=== PATIENT | female | born 1955 | race Caucasian/White ===

== ENCOUNTER → 2018-05-02 09:42 | Outpatient (CLI) | payer BC, SELFPAY ==
--- NOTE | 2018-05-02 09:45 | MM_ITS ---
MM Dig screening mamm BI w/CAD ORDERING PHYSICIAN : Linnette Blackman PATIENT AGE: 62 years GENDER: Female COMPARISON: January . 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 Bilateral breast reduction. No hormones. No new complaints Family history.: Maternal grandmother with breast cancer TECHNIQUE: Standard CC and MLO images were obtained. R2 CAD reviewed. Nipple profile MLO view included FINDINGS: Lower density breast with generalized fatty replacement. Minimal residual fibroglandular elements most evident at the lateral right left breast No dominant mass nor suspicious catheter either breast. CAD computer review highlights no areas of concern either RIGHT BREAST:. Stable right breast. Follow-up in one year LEFT BREAST:Stable left breast. Follow-up in one year Mild architectural changes most evident on the left breast from previous breast reduction.--appears stable -------- IMPRESSION: Stable bilateral mammogram significant new findings. Follow-up in one year. BI-RADS Category: 1 Negative RECOMMENDED FOLLOW-UP: 1YR 1 YEAR FOLLOW-UP (A letter has been sent to the patient regarding results of the study.)
== END ==
PROVIDERS: PCP Nurse Practitioner Family; Visit Provider Nurse Practitioner Family
DX: Z12.31 Encounter for screening mammogram for malignant neoplasm of breast (principal)
CPT/HCPCS: 77067

== ENCOUNTER → 2021-06-30 08:20 | Outpatient (CLI) | payer BC, SELFPAY ==
--- NOTE | 2021-06-30 08:24 | MM_ITS ---
PROCEDURE INFORMATION: Exam: MG Bilateral Screening 3D Mammography Exam date and time: 06/30/2021 8:24 AM Age: 65 years old Clinical indication: Encounter for screening mammogram for malignant neoplasm of breast TECHNIQUE: Imaging protocol: Bilateral Screening tomosynthesis and 2D mammography including computer-aided detection (CAD) when performed. COMPARISON: 1. MG SCBI MM Dig screening mamm BI w/CAD 05/02/2018 9:54 AM 2. MG DMSB DIG MAMM-SCREEN EDWINA W/CAD 01/25/2017 4:47 PM FINDINGS: MAMMOGRAPHY: Breast composition: The breasts are almost entirely fatty. Mass: None. Architectural distortion: None. Calcifications: No suspicious calcifications. Asymmetric density: None. Skin thickening: None. Axillary adenopathy: None. IMPRESSION: No mammographic evidence of malignancy. Annual screening is recommended unless otherwise clinically indicated. ASSESSMENT: BI-RADS Category 1: Negative
--- NOTE | 2021-06-30 08:28 | XR_ITS ---
FINAL REPORT CLINICAL HISTORY: LT KNEE PAIN x 1 year FINDINGS: Three views of the left knee reveal no evidence of fracture or dislocation. The bony alignment is normal. There are mild degenerative changes. There is no evidence of joint effusion. No localized soft tissue abnormality is seen. IMPRESSION: Mild degenerative change. Reviewed, Interpreted and Dictated by Matthew Lindsay III, MD Transcribed by Alvin Rodriges Authenticated by Matthew Lindsay III, MD on 06/30/2021 09:58:48 AM [facility]
== END ==
PROVIDERS: PCP Nurse Practitioner Family; Visit Provider Nurse Practitioner Family
DX: Z12.31 Encounter for screening mammogram for malignant neoplasm of breast (principal); M25.562 Pain in left knee
CPT/HCPCS: 73562; 77063; 77067

== ENCOUNTER → 2021-08-26 16:03 | Outpatient (CLI) | payer BC, SELFPAY | PROVIDERS: PCP Nurse Practitioner Family; Visit Provider Internal Medicine Adolescent Medicine | DX: G47.33 Obstructive sleep apnea (adult) (pediatric) (principal); R51.9 Headache, unspecified; R06.83 Snoring | CPT/HCPCS: G0399 ==

== ENCOUNTER → 2021-11-22 12:57 | Outpatient (CLI) | payer BC, SELFPAY ==
--- NOTE | 2021-11-22 13:03 | XR_ITS ---
FINAL REPORT CLINICAL HISTORY: RT KNEE PAIN FINDINGS: RIGHT KNEE Three views of the right knee reveal no evidence of fracture or dislocation. The bony alignment is normal. There is mild degenerative change. There is no evidence of joint effusion. There is a moderate joint effusion. IMPRESSION: Mild degenerative change with a moderate joint effusion. No acute bony abnormality. Reviewed, Interpreted and Dictated by Matthew Lindsay III, MD Transcribed by Hansa Salinas Authenticated and [facility]
== END ==
PROVIDERS: PCP Internal Medicine Adolescent Medicine; Visit Provider Internal Medicine Adolescent Medicine
DX: M25.561 Pain in right knee (principal)
CPT/HCPCS: 73562

== ENCOUNTER 2021-12-31 13:45 | Emergency (ER) | payer BC, SELFPAY ==
[2021-12-31 13:46] VITALS: BP 131/89; PULSE 76; RESP 19; TEMP 36.9; O2SAT 97; BMI 35.0
[2021-12-31 14:10] LABS: Color,Urine Red (Yellow)
[2021-12-31 14:11] LABS: Apearance,Urine Cloudy (Clear); Bilirubin,Urine 3+ (Negative); Blood, Urine 3+ (Negative); Glucose,Urine (UA) 100 (Negative); Ketones,Urine 2+ (Negative); PH,Urine 8.5 (5.0-8.5); Protein,Urine 3+ (Negative); UTC Leukocyte Esterase,Urine 3+ (Negative); UTC Nitrate,Urine Positive (Negative); Urobilinogen,Urine 4 EU/dl (0.2)
--- NOTE | 2021-12-31 14:55 | HMH.EDUTC ---
[facility] [place] Disposition Clinical Impression: UTI (urinary tract infection) Qualifiers: Urinary tract infection type: site unspecified Hematuria presence: with hematuria Qualified Code(s): N39.0 - Urinary tract infection, site not specified; R31.9 - Hematuria, unspecified Disposition: Home, Self-Care Condition on Discharge: Good Instructions: Urinary Tract Infection, DI for Urinary Tract Infection (UTI) Additional Instructions: *Increase fluids. Water not Soda or Tea *Start antibiotic immediately and be sure to take as ordered for the FULL length of time although you should start to see improvement over the next 48 hours *Pyridium as needed Remember this medication will turn your urine [place]. This is normal but it will stain what ever it gets on *You should not use Pyridium for more than 48 hours. If so , follow up with your primary physician to review urine culture and ensure that antibiotic is adequate for infection *Be SURE to follow up anytime for new or worsening symptoms with your family doctor. AND in 48 hours for urine culture results with your family doctor, if you do not have a doctor then you may call back to the [facility] for urine culture results and further treatment. We do recommend that you choose and establish care with a Primary Care Physician. AND follow up with them in 10-14 days to repeat UA to ensure infection is resolved and blood no longer present *Be sure to let your PCP know that we sent urine cultures from the [facility] so they can follow up to ensure that you area the on the correct antibiotic Call your doctor office and make appointment for 48 hours (2 days from today) to follow up and get the results of your urine culture and further treatment Prescriptions: Ciprofloxacin HCl [Cipro 500mg Tab] 500 mg PO BID 10 Days #20 tab Transmission Status: Pending to [id number] Phenazopyridine HCl [Pyridium 200mg Tablet] 200 pow PO TID #6 tab Transmission Status: Pending to [id number] Referrals: Sawyer Peterson MD [Primary Care Provider] - As needed Time of Disposition: 15:09 Medical Decision Making - Braulio Inquiry Pt receiving controlled substance: No Braulio was queried for this patient: No Vital Signs: 12/31/21 13:46 Temperature 98.5 F Temperature Source Oral Pulse Rate [Left Radial] 76 Respiratory Rate 19 Blood Pressure [Right Arm] 131/89 Blood Pressure Mean [Right Arm] 103 Blood Pressure Source [Right Arm] Automatic Cuff Blood Pressure Position [Right Arm] Sitting 02 Sat by Pulse Oximetry 97 Oxygen Delivery Method Room Air - Lab Data Lab results reviewed: Yes: I reviewed the patient's lab results. Lab Results 12/31/21 13:53: Urine Color Red, Urine Appearance Cloudy, Urine pH 8.5, Ur Specific [place] 1.010, Urine Protein 3+, Urine Glucose (UA) 100, Urine Ketones 2+, Urine Blood 3+, Urine Nitrate Positive A, Urine Bilirubin 3+ A, Urine Urobilinogen 4, Ur Leukocyte Esterase 3+ A Orders (Tests/Meds): ORDERS Category Date Time Status Urine Culture Stat Micro 12/31/21 14:02 Received [facility] [place] HPI - General Stated complaint: Possible UTI Time Seen by Provider: 12/31/21 14:20 Mode of Arrival: Ambulatory Source of Information: Patient Limitations: No Limitations Description of Symptoms (Recalled from Triage Doc. by RN): c/o burning with urination, blood ad frequent urination since this morning HEENT Symptoms (Recalled from RN notes): No Resp Symptoms (Recalled from RN notes): No Skin Symptoms (Recalled from RN notes): No MS Symptoms (Recalled from RN notes): No Functional Status (Recalled from RN notes): na - History of Present Illness Provider Complaint: Patient states that she has history of UTI States that she started this morning with burning with urination, urgency, frequency and blood in urine like she gets with UTI States that she came in to get checked and get some medication to help Denies Abdominal pain, denies fever, denies chills - Related Data Home Medication
[2021-12-31 15:24] VITALS: BP 131/89; PULSE 76; RESP 19; TEMP 36.9; O2SAT 97
== END 2021-12-31 15:24 | disposition home or self-care (01) ==
PROVIDERS: Emergency Provider Nurse Practitioner; PCP Internal Medicine Adolescent Medicine
DX: N30.01 Acute cystitis with hematuria (principal); F32.A Depression, unspecified; Z91.040 Latex allergy status
CPT/HCPCS: 81003; 87086; 87088; 87186; 96372; 99213; G0463; J0696

== ENCOUNTER → 2022-08-26 17:15 | Outpatient (CLI) | payer MEDICARE, SELFPAY ==
--- NOTE | 2022-08-26 17:19 | MM_ITS ---
PROCEDURE INFORMATION: Exam: MG Bilateral Screening 3D Mammography Exam date and time: 08/26/2022 5:11 PM Age: 67 years old Clinical indication: Screening examination TECHNIQUE: Imaging protocol: Bilateral Screening tomosynthesis and 2D mammography including computer-aided detection (CAD) when performed. COMPARISON: 1. MG MM DIG SCREENING MAMM BI W/CAD 06/30/2021 8:23 AM 2. MG SCBI MM Dig screening mamm BI w/CAD 05/02/2018 9:54 AM FINDINGS: MAMMOGRAPHY: Breast composition: The breasts are almost entirely fatty. Mass: None. Architectural distortion: None. Calcifications: No suspicious calcifications. Asymmetric density: None. Skin thickening: None. Axillary adenopathy: None. IMPRESSION: No mammographic evidence of malignancy. Annual screening is recommended unless otherwise clinically indicated. ASSESSMENT: BI-RADS Category 1: Negative
== END ==
PROVIDERS: PCP Internal Medicine Adolescent Medicine; Visit Provider Nurse Practitioner Family
DX: Z12.31 Encounter for screening mammogram for malignant neoplasm of breast (principal); M12.9 Arthropathy, unspecified
CPT/HCPCS: 77063; 77067

== ENCOUNTER → 2022-09-27 23:35 | Outpatient (CLI) | payer MEDICARE, SELFPAY | PROVIDERS: PCP Student in an Organized Health Care Education/Training Program; Visit Provider Student in an Organized Health Care Education/Training Program | DX: N39.0 Urinary tract infection, site not specified (principal); R31.9 Hematuria, unspecified | CPT/HCPCS: 87086 ==

== ENCOUNTER → 2022-11-11 07:31 | Outpatient (CLI) | payer MEDICARE, SELFPAY ==
--- NOTE | 2022-11-11 07:38 | MR_ITS ---
FINAL REPORT CLINICAL HISTORY: LEFT KNEE PAIN. medial sided knee pain. knee instability FINDINGS: Multi planar MR imaging was performed of the left knee. The anterior and posterior cruciate ligaments are intact. The quadriceps and patellar tendons are intact. The medial and lateral menisci are intact without evidence of tear. The medial and lateral collateral ligaments appear intact. The medial and lateral retinacula appear intact. There is abnormal marrow edema in the proximal tibia extending to the articular surface. Linear signal abnormality is seen on images 11 and 13 of series 7 which may represent subtle, nondisplaced fracture extending to the tibial plateau. No evidence of soft tissue inflammatory reaction. IMPRESSION: Subtle, probable nondisplaced fracture of the tibial plateau with marrow edema in the proximal tibia extending to the articular surface. Reviewed, Interpreted and Dictated by Miguel Espinosa MD Transcribed by Sherly Garnica Authenticated and [facility]
== END ==
PROVIDERS: PCP Student in an Organized Health Care Education/Training Program; Visit Provider Orthopaedic Surgery Adult Reconstructive Orthopaedic Surgery
DX: M25.562 Pain in left knee (principal)
CPT/HCPCS: 73721

== ENCOUNTER 2023-09-29 09:36 | Outpatient (CLI) | payer MEDICARE, SELFPAY ==
--- NOTE | 2023-09-29 09:41 | MM_ITS ---
PROCEDURE INFORMATION: Exam: MG Bilateral Screening 3D Mammography Exam date and time: 09/29/2023 9:47 AM Age: 68 years old Clinical indication: Screening examination TECHNIQUE: Imaging protocol: Bilateral Screening tomosynthesis and 2D mammography including computer-aided detection (CAD) when performed. COMPARISON: 1. MG MM DIG SCREENING MAMM BI W/CAD 08/26/2022 5:11 PM 2. MG MM DIG SCREENING MAMM BI W/CAD 06/30/2021 8:23 AM FINDINGS: MAMMOGRAPHY: Breast composition: The breasts are almost entirely fatty. Mass: None. Architectural distortion: None. Calcifications: No suspicious calcifications. Asymmetric density: None. Skin thickening: None. Axillary adenopathy: None. IMPRESSION: No mammographic evidence of malignancy. Annual screening is recommended unless otherwise clinically indicated. ASSESSMENT: BI-RADS Category 1: Negative
--- NOTE | 2023-09-29 09:42 | XR_ITS ---
FINAL REPORT CLINICAL HISTORY: POST MENOPAUSAL FINDINGS: Using L1-4, the bone mineral density of the spine is 0.923 g/cm2, corresponding to T-score of -1.1 which is within the range of osteopenia. Using the left hip, the total bone mineral density is 0.753 g/cm2, corresponding to a T-score of -1.5 which is within the range of osteopenia. Using the right hip: The bone mineral density of the femoral neck is 0.718 g/cm2, corresponding to a T-score of -1.2 which is within the range of osteopenia. FRAX 10 year fracture risk is 7.8% for a hip fracture and 0.7% for a major osteoporotic fracture. IMPRESSION: Osteopenic bone mineral density of the lumbar spine and hips. NOTE: T-score: Standard deviation compared with peak bone mass of young adult mean. *Following the recommendations of the International Society of Bone densitometry, classification of hip BMD is based on the lower of two T-scores; total hip or femoral neck. Reviewed, Interpreted and Dictated by Miguel Espinosa MD Transcribed by Leisa Rajput Authenticated and [facility]
== END 2023-09-29 23:59 | disposition home or self-care (01) ==
LOC: RAD 09:37
PROVIDERS: PCP Internal Medicine Adolescent Medicine; Visit Provider Nurse Practitioner Family
DX: Z12.31 Encounter for screening mammogram for malignant neoplasm of breast; Z13.820 Encounter for screening for osteoporosis; Z78.0 Asymptomatic menopausal state
CPT/HCPCS: 77063; 77067; 77080